=== PATIENT | male | born 1965 | race Caucasian/White ===

== ENCOUNTER 2018-10-13 05:47 | Day surgery (SDC) | payer SELFPAY ==
[2018-10-12 11:34] LABS: HEMATOCRIT 49.5 % (37.9-51.0); HEMOGLOBIN 17.1 g/dL (13.5-17.0); MEAN CORPUSCULAR HEMOGLOBIN 28.1 pg (27.0-33.4); MEAN CORPUSCULAR HGB CONC 34.5 g/dL (32.0-36.0); MEAN CORPUSCULAR VOLUME 81 fl (80-97); PLATELET COUNT 241 10^3/uL (150-450); RED BLOOD COUNT 6.08 10^6/uL (4.35-5.55); RED CELL DISTRIBUTION WIDTH 13.8 % (11.5-14.0); WHITE BLOOD COUNT 9.6 10^3/uL (4.0-10.5)
[2018-10-12 11:57] LABS: ALANINE AMINOTRANSFERASE 30 U/L (21-72); ALBUMIN 4.3 g/dL (3.5-5.0); ALKALINE PHOSPHATASE 65 U/L (38-126); ANION GAP 10 (5-19); ASPARTATE AMINO TRANSFERASE 19 U/L (17-59); BILIRUBIN,DIRECT 0.3 mg/dL (0.0-0.4); BILIRUBIN,TOTAL 0.4 mg/dL (0.2-1.3); BLOOD UREA NITROGEN 17 mg/dL (7-20); CALCIUM 9.4 mg/dL (8.4-10.2); CARBON DIOXIDE 26 mmol/L (22-30); CHLORIDE 99 mmol/L (98-107); GLUCOSE 238 mg/dL (75-110); POTASSIUM 4.6 mmol/L (3.6-5.0); SODIUM 135.3 mmol/L (137-145); TOTAL PROTEIN 6.6 g/dL (6.3-8.2)
--- NOTE | 2018-10-12 13:27 | EKG REPORT ---
SEVERITY:- NORMAL ECG - SINUS RHYTHM : Confirmed by: Colby Cutler MD 12-Oct-2018 13:27:00
--- NOTE | 2018-10-12 14:12 | RADIOLOGY REPORT (SQ) ---
EXAM DESCRIPTION: CHEST PA/LATERAL COMPLETED DATE/TIME: 10/12/2018 11:15 am REASON FOR STUDY: PRE-OP COMPARISON: None. EXAM PARAMETERS: NUMBER OF VIEWS: two views TECHNIQUE: Digital Frontal and Lateral radiographic views of the chest acquired. RADIATION DOSE: NA LIMITATIONS: none FINDINGS: LUNGS AND PLEURA: No opacities, masses or pneumothorax. No pleural effusion. MEDIASTINUM AND HILAR STRUCTURES: No masses or contour abnormalities. HEART AND VASCULAR STRUCTURES: Heart normal size. No evidence for failure. BONES: No acute findings. HARDWARE: None in the chest. OTHER: No other significant finding. IMPRESSION: NO SIGNIFICANT RADIOGRAPHIC FINDING IN THE CHEST. TECHNICAL DOCUMENTATION: JOB ID: [id number] [employer]- All Rights Reserved Reading location - IP/workstation name: [email or web address]
[~2018-10-13 05:47] MED LIST: ACETAMINOPHEN 325 MG TABLET PO PRN; CEFAZOLIN 2 GM/D5W RTU 2 GM/50 ML RTUPB IV ONE; CEFAZOLIN 2 GM/D5W RTU 2 GM/50 ML RTUPB IV PRN; LACTATED RINGERS 1000 ML IV PRN; LIDOCAINE 0.5% INJ-PF (5 MG/ML) 50 ML SDV SUBCUT PRN
[2018-10-13] MEDS ORDERED: HYDROMORPHONE HCL INJ/PF 2 MG/ML AMPULE ONE (06:39)
[2018-10-13] MEDS ORDERED: FENTANYL CITRATE INJ/PF 100 MCG/2 ML AMPUL ONE (06:39)
[2018-10-13] MEDS ORDERED: MIDAZOLAM 2 MG/2 ML INJ ONE (06:40)
[2018-10-13] MEDS ORDERED: PROPOFOL INJ 200 MG/20 ML VIAL IV ONE (06:40)
[2018-10-13] MEDS ORDERED: ACETAMINOPHEN 1,000 MG/100 ML RTUPB IV ONE (06:40)
[2018-10-13] MEDS ORDERED: BUPIVACAINE HCL 0.25 % INJ/PF (2.5 MG/1 ML) 30 ML VIAL ONE (06:58)
[2018-10-13 07:49] LABS: POTASSIUM 4.4 mmol/L (3.6-5.0)
[2018-10-13] MEDS ORDERED: FENTANYL CITRATE INJ/PF 100 MCG/2 ML AMPUL IV PRN ×3 (08:28)
[2018-10-13] MEDS ORDERED: DIPHENHYDRAMINE HCL 50 MG/ML VIAL IV PRN (08:28)
[2018-10-13] MEDS ORDERED: MEPERIDINE HCL/PF INJ 25 MG/1 ML DISP.SYRIN IV PRN (08:28)
[2018-10-13] MEDS ORDERED: PROMETHAZINE HCL INJ 25 MG/1 ML VIAL IV PRN ×2 (08:28)
[2018-10-13] MEDS: FENTANYL CITRATE INJ/PF 100 MCG/2 ML AMPUL ONE ×2 (11:15→11:20)
[2018-10-13] MEDS ORDERED: HYDROCODONE/ACETAMINOPHEN 10-325 MG TABLET ONE (11:59)
[2018-10-13 12:57] VITALS: BP 124/79
[2018-10-13] MEDS ORDERED: GLYCOPYRROLATE 1 MG/5 ML SYRINGE ONE (14:37)
[2018-10-13] MEDS ORDERED: NEOSTIGMINE METHYLSULFATE 10 MG/10 ML VIAL ONE (14:37)
[2018-10-13] MEDS ORDERED: SUCCINYLCHOLINE CHLORIDE INJ 200 MG/10 ML VIAL ONE (14:37)
[2018-10-13] MEDS ORDERED: ONDANSETRON HCL INJ/PF 4 MG/2 ML SDV ONE (14:37)
[2018-10-13] MEDS ORDERED: DEXAMETHASONE SOD PHOSPHATE INJ 4 MG/1 ML VIAL ONE (14:37)
[2018-10-13] MEDS ORDERED: KETOROLAC TROMETHAMINE 60 MG/2 ML SDV ONE (14:37)
[2018-10-13] MEDS ORDERED: ROCURONIUM BROMIDE INJ 50 MG/5 ML VIAL IV ONE (14:37)
[2018-10-13] MEDS ORDERED: LIDOCAINE 2% INJ-PF (20 MG/ML) 2 ML AMPUL ONE (14:37)
--- NOTE | 2018-10-15 12:49 | Discharge Summary ---
Discharge Summary (SDC) - Discharge Final Diagnosis: Bilateral inguinal hernias. Date of Surgery: 10/13/18 Discharge Date: 10/13/18 Condition: Stable Forms: ASU Anesthesia D/C Instruction, Discharge POC-Surgical Service Treatment or Instructions: Call Dr. Davis's office tomorrow, and make a followup appointment for 7-10 days from now. Referrals: YAJAIRA HAGAN MD [ACTIVE STAFF] - Respiratory Treatments at Home: Deep Breathing/Coughing, Incentive Spirometer Discharge Activity: No Lifting/Push/Pulling Home Care Assistance: None Needed Report the Following to Your Physician Immediately: Shortness of Breath, Nausea, Vomiting, Increase in Pain, Fever over 101 Degrees, Unusual Bleeding, Redness, Swelling, Warmth
--- NOTE | 2018-10-15 13:06 | Operative Report ---
Nonrecallable Operative Report DATE OF SURGERY: 10/13/18 PREOPERATIVE DIAGNOSIS: Bilateral inguinal hernias. POSTOPERATIVE DIAGNOSIS: Large bilateral pantaloon inguinal hernias. OPERATION: Robot-assisted laparoscopic bilateral inguinal hernia repair with mesh. SURGEON: YAJAIRA HAGAN ANESTHESIA: GA TISSUE REMOVED OR ALTERED: None COMPLICATIONS: None apparent ESTIMATED BLOOD LOSS: Minimal PROCEDURE: Drains/implants: Right and left large 3 DMax inguinal hernia mesh. Procedure in detail: After informed consent was obtained, the patient was brought to the operating room and laid in the supine position the area of the abdomen was prepped and draped in a normal sterile fashion. A supraumbilical incision was created with a 15 blade scalpel. This was deepened to the use of sharp and blunt dissection. The cicatrix was identified, grasped with a Karlee clamp, and retracted upwards. The linea alba fascia was incised sharply, the abdomen was entered sharply. The balloon trocar was inserted, pneumoperitoneum was achieved. Next, 2 8 mm robotic trochars were placed to the anterior abdominal wall under direct laparoscopic visualization. This was done in the right and left lateral abdomen. Robot was then brought over the patient and docked appropriately. Attention was turned to the right groin. An incision was created in the peritoneum 2-3 cm superior to the indirect inguinal hernia defect. A preperitoneal dissection was then undertaken. Upon dissection, it was noted that there was both an indirect and a direct right inguinal hernia defect, creating a pantaloon hernia. The hernia sacs were cleared from both the indirect and direct defects. Great care was taken not to injure the cord structures during this maneuver. Once this was completed, a large right-sided 3 DMax inguinal hernia mesh was placed into the preperitoneal space and it was sutured medially and superiorly using 2-0 Vicryl suture. Once this was completed the peritoneum was reapproximated using 2-0 V lock suture in simple running fashion. Attention was then turned to the left side. A preperitoneal dissection was begun in similar fashion on the left. The peritoneum was scored 2-3 cm superior to the large left indirect inguinal hernia defect. A preperitoneal dissection was then undertaken using sharp dissection, blunt dissection, and electrocautery. On the left side there was also noted to be a large direct component to the inguinal hernia defect. Both hernia sacs were dissected free of the defects. Great care was taken not to injure the cord structures during this maneuver. Once the defects were cleared, a large left- sided 3 DMax inguinal hernia mesh was placed into the preperitoneal space. It was sutured in place using 2-0 Vicryl suture medially and superiorly. Once this was completed, the peritoneum was closed using 2-0 V lock suture in simple running fashion. The 8 mm trochars were removed. The 12 mm trocar was removed, and pneumoperitoneum was relieved. The supraumbilical fascia was closed using 0 Vicryl suture in [id number] fashion. The overlying skin was closed using 4-0 Vicryl Rapide suture in subcuticular fashion. A dressing was placed, and the procedure was concluded. All sponge, instrument, and needle counts were correct x2. Condition: Stable.
== END 2018-10-13 13:15 | disposition home or self-care (01) ==
LOC: OROUT 05:47
PROVIDERS: ATTEND Surgery
DX: K40.20 Bilateral inguinal hernia, without obstruction or gangrene, not specified as recurrent (principal); E11.9 Type 2 diabetes mellitus without complications; I10 Essential (primary) hypertension; Z79.82 Long term (current) use of aspirin; Z79.84 Long term (current) use of oral hypoglycemic drugs; Z79.899 Other long term (current) drug therapy
CPT/HCPCS: 49650; S2900; 36415; 71046; 80053; 82947; 840; 84132; 85027; 86850; 86900; 86901; 93005; 93010; C1781; J0131; J0330; J0690; J1100; J1170; J1885; J2250; J2405; J2704; J3010; J3490

== ENCOUNTER 2019-12-13 05:12 | Emergency (ER) | payer SELFPAY ==
--- NOTE | 2019-12-13 06:13 | EKG REPORT ---
SEVERITY:- NORMAL ECG - SINUS RHYTHM : Confirmed by: Colby Cutler MD 13-Dec-2019 06:12:38
[2019-12-13 06:16] LABS: ABSOLUTE BASOPHILS # (AUTO) 0.1 10^3/uL (0.0-0.2); ABSOLUTE EOSINOPHILS # (AUTO) 0.5 10^3/uL (0.0-0.6); ABSOLUTE LYMPHOCYTES (AUTO) 2.1 10^3/uL (0.5-4.7); ABSOLUTE MONOCYTES (AUTO) 0.7 10^3/uL (0.1-1.4); ABSOLUTE NEUT (AUTO) 5.1 10^3/uL (1.7-8.2); BASOPHILS % (AUTO) 1.1 % (0-2); EOSINOPHILS % (AUTO) 6.1 % (0-6); HEMATOCRIT 48.7 % (37.9-51.0); HEMOGLOBIN 16.7 g/dL (13.5-17.0); LYMPHOCYTES % (AUTO) 24.2 % (13-45); MEAN CORPUSCULAR HEMOGLOBIN 28.1 pg (27.0-33.4); MEAN CORPUSCULAR HGB CONC 34.3 g/dL (32.0-36.0); MEAN CORPUSCULAR VOLUME 82 fl (80-97); MONOCYTES % (AUTO) 8.8 % (3-13); PLATELET COUNT 218 10^3/uL (150-450); RED BLOOD COUNT 5.95 10^6/uL (4.35-5.55); RED CELL DISTRIBUTION WIDTH 14.1 % (11.5-14.0); SEGMENTED NEUTROPHILS % (AUTO) 59.8 % (42-78); TOTAL CELLS COUNTED % (AUTO) 100 %; WHITE BLOOD COUNT 8.5 10^3/uL (4.0-10.5)
[2019-12-13 06:33] LABS: ALKALINE PHOSPHATASE 56 U/L (38-126); ANION GAP 9 (5-19); ASPARTATE AMINO TRANSFERASE 33 U/L (17-59); BILIRUBIN,TOTAL 0.5 mg/dL (0.2-1.3); BLOOD UREA NITROGEN 21 mg/dL (7-20); CALCIUM 9.1 mg/dL (8.4-10.2); CARBON DIOXIDE 25 mmol/L (22-30); CHLORIDE 99 mmol/L (98-107); CREATINE KINASE 107 U/L (55-170); GLUCOSE 195 mg/dL (75-110); POTASSIUM 4.7 mmol/L (3.6-5.0); TOTAL PROTEIN 6.6 g/dL (6.3-8.2)
[2019-12-13 06:52] LABS: CREATINE KINASE MB 2.56 ng/mL (<4.55)
[2019-12-13 06:54] LABS: TROPONIN I < 0.012 ng/mL
--- NOTE | 2019-12-13 06:57 | ER Document Report ---
ED General - General Chief Complaint: Chest Pain Stated Complaint: CHEST PAINS Time Seen by Provider: 12/13/19 06:26 Primary Care Provider: JAYA HENNING PA-C [Primary Care Provider] - Follow up as needed Mode of Arrival: Ambulatory Information source: Patient TRAVEL OUTSIDE OF THE [place] IN LAST 30 DAYS: No - HPI Onset: Other - over the last several days Onset/Duration: Gradual Quality of pain: Burning, Sharp Severity: Moderate Pain Level: 2 Associated symptoms: None Exacerbated by: Other - made worse with stress and sometimes with eating food such as steak Relieved by: Denies Similar symptoms previously: No Recently seen / treated by doctor: No Notes: 54 year old male with a history of HTN and DM here for off and on lower chest pain and epigastric pain for the last several days. The patient says eating foot such as steak seems to make the pains worse sometimes. The patient has been under a fair amount of stress dealing with his 11 year old step son and he says the stress seems to make the pain worse as well. The patient says he has had the pains before but they have become worse over the last 2 days and yesterday he had some SOB with the chest pain which was new for him. The patient denies fevers, chills, sweats, nausea, vomiting, radiation of chest pain, cough, congestion. - Related Data Allergies/Adverse Reactions: No Known Allergies Allergy (Verified 10/12/18 10:15) Home Medications: lisinopril/hctz 20/25 qday. asa 81 mg qday. metformin 1000 mg bid. gliberide 5 mg bid Past Medical History - General Information source: Patient - Social History Smoking Status: Never Smoker Frequency of alcohol use: Rare Drug Abuse: None Lives with: Family Family History: Other - father had pancreatic cancer Patient has suicidal ideation: No Patient has homicidal ideation: No - Past Medical History Cardiac Medical History: Reports: Hx Hypertension Denies: Hx Coronary Artery Disease, Hx Heart Attack Pulmonary Medical History: Denies: Hx Asthma, Hx Bronchitis, Hx COPD, Hx Pneumonia Neurological Medical History: Denies: Hx Cerebrovascular Accident, Hx Seizures Endocrine Medical History: Reports: Hx Diabetes Mellitus Type 2 Musculoskeletal Medical History: Denies Hx Arthritis - Immunizations Hx Diphtheria, Pertussis, Tetanus Vaccination: Yes - NOT UP TO DATE Review of Systems - Review of Systems Constitutional: No symptoms reported EENT: No symptoms reported Cardiovascular: Chest pain Respiratory: No symptoms reported Gastrointestinal: Abdominal pain - in epigastric area Genitourinary: No symptoms reported Male Genitourinary: No symptoms reported Musculoskeletal: No symptoms reported Skin: No symptoms reported Hematologic/Lymphatic: No symptoms reported Neurological/Psychological: No symptoms reported -: Yes All other systems reviewed and negative Physical Exam - Vital signs Vitals: Temp Pulse Resp BP Pulse Ox 98.2 F 81 16 124/73 99 12/13/19 05:33 12/13/19 05:33 12/13/19 05:33 12/13/19 05:33 12/13/19 05:33 - Notes Notes: GENERAL: Well-appearing, well-nourished and in no acute distress. HEAD: Atraumatic, normocephalic. EYES: Pupils equal round and reactive to light, extraocular movements intact, sclera anicteric, conjunctiva are normal. ENT: Nares patent, oropharynx clear without exudates. Moist mucous membranes. NECK: Normal range of motion, supple without lymphadenopathy or JVD. LUNGS: Breath sounds clear to auscultation bilaterally and equal. No wheezes rales or rhonchi. HEART: Regular rate and rhythm without murmurs, rubs or gallops. ABDOMEN: Soft, nontender, normoactive bowel sounds. No guarding, no rebound. No masses appreciated. EXTREMITIES: Normal range of motion, no pitting or edema. No clubbing or cyanosis. NEUROLOGICAL: Cranial nerves II through XII grossly intact. Normal speech, normal gait. PSYCH: Normal mood, normal affect. SKIN: Warm, Dry, normal turgor, no rashes or lesions noted. Course - Re-evaluation Re-evalutation: 12/13/19 09:39 The patient is here for lower chest pain/epigastric abdominal pain. The patient says he has been under a lot of stress with his step son and this seems to bring on the pains. The patient says eating certain foods like steak also bring on the pains. The patient has had his gallbladder removed already. Patient's pain went completely away with a GI Cocktail. Patient's labs including a CBC, LFTs, Lipase and Trop are within normal limits. Patient's father had a history of pancreatic cancer. Patient was told to follow up with his PCP for further work. Patient was told he should have a stress test to rule out cardiac causes, he should consider having an endoscopy to rule out an ulcer, and he may need further lab testing or studies to rule out pancreatic cancer. - Vital Signs Vital signs: Temp Pulse Resp BP Pulse Ox 98.1 F 81 19 128/74 H 96 12/13/19 08:01 12/13/19 05:33 12/13/19 08:01 12/13/19 08:01 12/13/19 08:01 - Laboratory Result Diagrams: 12/13/19 06:05 12/13/19 06:05 Laboratory results interpreted by me: 12/13/19 12/13/19 06:05 06:05 RBC 5.95 H RDW 14.1 H Eos % (Auto) 6.1 H Sodium 133.2 L BUN 21 H Glucose 195 H - Diagnostic Test Radiology reviewed: Image reviewed, Reports reviewed - EKG Interpretation by Me EKG shows normal: Sinus rhythm, [place], Intervals, QRS Complexes, ST-T Waves Rate: Normal Rhythm: NSR When compared to previous EKG there are: No significant change Discharge - Discharge Clinical Impression: Epigastric abdominal pain Chest pain Qualifiers: Chest pain type: unspecified Qualified Code(s): R07.9 - Chest pain, unspecified Condition: Stable Disposition: HOME, SELF-CARE Instructions: Chest Pain of Unclear Cause ([facility]), Evaluation of Upper Abdominal Pain ([facility]) Additional Instructions: Try using over the counter anti-acid medications such as Raimundo, Zantac, Protonix. Follow up with your primary care doctor for further work up if symptoms persist. You may need to have a cardiac stress test, an endoscopy, or more blood tests depending on if your symptoms persist and what they seem to be related to activity [place]. Referrals: JAYA HENNING PA-C [Primary Care Provider] - Follow up as needed
[2019-12-13] MEDS ORDERED: MAG HYDROX/AL HYDROX/SIMETH SUSP 30 ML UDCUP PO ONE (07:08)
[2019-12-13] MEDS ORDERED: LIDOCAINE 2% VISCOUS SOLN 15 ML UDCUP PO ONE (07:08)
[2019-12-13] MEDS ORDERED: METOCLOPRAMIDE HCL ORAL SOLN 10 MG/10 ML UDCUP PO ONE (07:08)
--- NOTE | 2019-12-13 07:09 | RADIOLOGY REPORT (SQ) ---
EXAM: XR Chest, 1 View EXAM DATE/TIME: 12/13/2019 6:06 AM CLINICAL HISTORY: The patient is 54 years old and is Male; chest pain TECHNIQUE: Frontal view of the chest. COMPARISON: Chest radiograph from 10/12/2018 FINDINGS: LUNGS: The lungs are mildly hypoinflated but clear. No consolidation. PLEURAL SPACE: Unremarkable. No pneumothorax. HEART: No significant enlargement of the cardiac silhouette. MEDIASTINUM: Unremarkable. BONES/JOINTS: No acute osseous findings. IMPRESSION: No acute findings visualized in the chest.
[2019-12-13 10:19] VITALS: BP 121/84
== END 2019-12-13 10:21 | disposition home or self-care (01) ==
LOC: ER 05:12
DX: R07.9 Chest pain, unspecified (principal); R10.13 Epigastric pain; R06.02 Shortness of breath; I10 Essential (primary) hypertension; E11.9 Type 2 diabetes mellitus without complications; Z63.8 Other specified problems related to primary support group; Z79.84 Long term (current) use of oral hypoglycemic drugs; Z79.899 Other long term (current) drug therapy; Z79.82 Long term (current) use of aspirin; Z90.49 Acquired absence of other specified parts of digestive tract; Z80.0 Family history of malignant neoplasm of digestive organs
CPT/HCPCS: 93005; 99285; 36415; 82553; 82550; 83690; 85025; 80053; 84484; 83880; 71045; 93010; J3490

== ENCOUNTER 2020-05-31 11:48 | Emergency (ER) | payer OTHER ==
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
[2020-05-31] MEDS ORDERED: MORPHINE SULFATE 10 MG/ML INJ IV ONE (13:53)
[2020-05-31 14:06] LABS: ABSOLUTE BASOPHILS # (AUTO) 0.1 10^3/uL (0.0-0.2); ABSOLUTE EOSINOPHILS # (AUTO) 0.7 10^3/uL (0.0-0.6); ABSOLUTE LYMPHOCYTES (AUTO) 2.1 10^3/uL (0.5-4.7); ABSOLUTE MONOCYTES (AUTO) 0.8 10^3/uL (0.1-1.4); ABSOLUTE NEUT (AUTO) 7.9 10^3/uL (1.7-8.2); BASOPHILS % (AUTO) 0.5 % (0-2); HEMATOCRIT 41.8 % (37.9-51.0); HEMOGLOBIN 13.9 g/dL (13.5-17.0); LYMPHOCYTES % (AUTO) 18.3 % (13-45); MEAN CORPUSCULAR HEMOGLOBIN 27.5 pg (27.0-33.4); MEAN CORPUSCULAR HGB CONC 33.3 g/dL (32.0-36.0); MEAN CORPUSCULAR VOLUME 82 fl (80-97); MONOCYTES % (AUTO) 7.1 % (3-13); PLATELET COUNT 275 10^3/uL (150-450); RED BLOOD COUNT 5.07 10^6/uL (4.35-5.55); RED CELL DISTRIBUTION WIDTH 14.7 % (11.5-14.0); SEGMENTED NEUTROPHILS % (AUTO) 68.1 % (42-78); TOTAL CELLS COUNTED % (AUTO) 100 %; WHITE BLOOD COUNT 11.6 10^3/uL (4.0-10.5)
[2020-05-31 14:22] LABS: ALBUMIN 4.3 g/dL (3.5-5.0); ALKALINE PHOSPHATASE 66 U/L (38-126); ANION GAP 10 (5-19); ASPARTATE AMINO TRANSFERASE 21 U/L (17-59); BILIRUBIN,TOTAL 0.6 mg/dL (0.2-1.3); BLOOD UREA NITROGEN 30 mg/dL (7-20); CALCIUM 9.5 mg/dL (8.4-10.2); CARBON DIOXIDE 25 mmol/L (22-30); CHLORIDE 99 mmol/L (98-107); GLUCOSE 118 mg/dL (75-110); POTASSIUM 4.6 mmol/L (3.6-5.0); TOTAL PROTEIN 7.2 g/dL (6.3-8.2)
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
[2020-05-31 17:18] VITALS: BP 110/66
== END 2020-05-31 17:18 | disposition home or self-care (01) ==
LOC: ER 11:48
DX: S06.0X0A Concussion without loss of consciousness, initial encounter (principal); S80.12XA Contusion of left lower leg, initial encounter; S30.1XXA Contusion of abdominal wall, initial encounter; I95.9 Hypotension, unspecified; V58.5XXA Driver of pick-up truck or van injured in noncollision transport accident in traffic accident, initial encounter; Y99.0 Civilian activity done for income or pay; I10 Essential (primary) hypertension; E11.9 Type 2 diabetes mellitus without complications
CPT/HCPCS: 99285; 96374; 36415; 85025; 80053; 70450; 72125; 74177; 73700; J2270

== ENCOUNTER 2020-07-18 13:25 | Emergency (ER) | payer OTHER ==
[2020-07-18] MEDS ORDERED: HYDROCODONE/ACETAMINOPHEN 5-325 MG TABLET PO ONE (15:40)
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
--- NOTE | 2020-07-18 16:16 | RADIOLOGY REPORT (SQ) ---
EXAM DESCRIPTION: U/S EXTREMITY NONVASCULAR LTD IMAGES COMPLETED DATE/TIME: 07/18/2020 4:02 pm REASON FOR STUDY: left upper thigh large hematoma, +pain, +swelling COMPARISON: None. TECHNIQUE: Dynamic and static grayscale images acquired of the localized site of clinical concern an d recorded on PACS. Additional selected color Doppler and spectral images recorded. SITE OF CONCERN: Left lower extremity LIMITATIONS: None. FINDINGS: SKIN AND SUBCUTANEOUS TISSUES: There is a circumscribed 15.0 x 7.7 x 6.1 cm heterogeneous, predominantly hypoechoic collection within the subcutaneous soft tissues. Color Doppler interrogati on demonstrates no internal vascularity. Given the appearance of lacy internal septations, this like ly represents a resolving hematoma. The overlying skin appears somewhat edematous. DEEP SOFT TISSUES/MUSCLES: No masses. No fluid collections. No edema. VASCULAR: No increased or decreased vascularity. No occlusions. OTHER: No other significant finding. IMPRESSION: 15.0 x 7.7 x 6.1 cm subcutaneous collection likely represents a resolving hematoma. TECHNICAL DOCUMENTATION: JOB ID: [id number] 2010 [employer]- All Rights Reserved Reading location - IP/workstation name: [email or web address]
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
[2020-07-18 17:49] VITALS: BP 130/79
== END 2020-07-18 18:22 | disposition home or self-care (01) ==
LOC: ER 13:25
DX: S70.12XA Contusion of left thigh, initial encounter (principal); M79.89 Other specified soft tissue disorders; M79.605 Pain in left leg; V69.9XXA Occupant (driver) (passenger) of heavy transport vehicle injured in unspecified traffic accident, initial encounter; Y99.0 Civilian activity done for income or pay
CPT/HCPCS: 76882; 99284

== ENCOUNTER → 2020-07-27 | Outpatient (CLI) | payer OTHER ==
[2020-07-27 11:48] LABS: APPEARANCE,URINE CLEAR; BILIRUBIN,URINE NEGATIVE (NEGATIVE); COLOR,URINE YELLOW; GLUCOSE, URINE 50 mg/dL (NEGATIVE); KETONES,URINE NEGATIVE (NEGATIVE); LEUKOCYTE ESTERASE,URINE NEGATIVE (NEGATIVE); NITRITE,URINE NEGATIVE (NEGATIVE); PROTEIN,URINE NEGATIVE (NEGATIVE); URINE SPECIFIC GRAVITY 1.012; UROBILINOGEN,URINE NEGATIVE mg/dL (<2.0)
[2020-07-27 11:51] LABS: ABSOLUTE BASOPHILS # (AUTO) 0.1 10^3/uL (0.0-0.2); ABSOLUTE EOSINOPHILS # (AUTO) 0.5 10^3/uL (0.0-0.6); ABSOLUTE LYMPHOCYTES (AUTO) 1.9 10^3/uL (0.5-4.7); ABSOLUTE MONOCYTES (AUTO) 0.8 10^3/uL (0.1-1.4); ABSOLUTE NEUT (AUTO) 5.7 10^3/uL (1.7-8.2); EOSINOPHILS % (AUTO) 5.4 % (0-6); HEMATOCRIT 44.8 % (37.9-51.0); HEMOGLOBIN 15.4 g/dL (13.5-17.0); LYMPHOCYTES % (AUTO) 21.3 % (13-45); MEAN CORPUSCULAR HEMOGLOBIN 27.9 pg (27.0-33.4); MEAN CORPUSCULAR HGB CONC 34.3 g/dL (32.0-36.0); MEAN CORPUSCULAR VOLUME 81 fl (80-97); MONOCYTES % (AUTO) 8.7 % (3-13); PLATELET COUNT 261 10^3/uL (150-450); RED BLOOD COUNT 5.53 10^6/uL (4.35-5.55); RED CELL DISTRIBUTION WIDTH 15.1 % (11.5-14.0); SEGMENTED NEUTROPHILS % (AUTO) 63.6 % (42-78); TOTAL CELLS COUNTED % (AUTO) 100 %
[2020-07-27 12:14] LABS: ANION GAP 13 (5-19); BLOOD UREA NITROGEN 26 mg/dL (7-20); CALCIUM 9.6 mg/dL (8.4-10.2); CARBON DIOXIDE 26 mmol/L (22-30); CHLORIDE 94 mmol/L (98-107); GLUCOSE 192 mg/dL (75-110); POTASSIUM 4.8 mmol/L (3.6-5.0)
--- NOTE | 2020-07-27 12:25 | EKG REPORT ---
SEVERITY:- OTHERWISE NORMAL ECG - SINUS TACHYCARDIA : Confirmed by: Colby Cutler MD 27-Jul-2020 12:24:23
--- NOTE | 2020-07-27 14:23 | RADIOLOGY REPORT (SQ) ---
EXAM DESCRIPTION: CHEST PA/LATERAL IMAGES COMPLETED DATE/TIME: 07/27/2020 2:05 pm REASON FOR STUDY: PRE-OP COMPARISON: 12/13/2019 EXAM PARAMETERS: NUMBER OF VIEWS: two views TECHNIQUE: Digital Frontal and Lateral radiographic views of the chest acquired. RADIATION DOSE: NA LIMITATIONS: none FINDINGS: LUNGS AND PLEURA: No opacities, masses or pneumothorax. No pleural effusion. MEDIASTINUM AND HILAR STRUCTURES: No masses or contour abnormalities. HEART AND VASCULAR STRUCTURES: Heart normal size. No evidence for failure. BONES: No acute findings. HARDWARE: None in the chest. OTHER: No other significant finding. IMPRESSION: NO SIGNIFICANT RADIOGRAPHIC FINDING IN THE CHEST. TECHNICAL DOCUMENTATION: JOB ID: [id number] 2010 [employer]- All Rights Reserved Reading location - IP/workstation name: [email or web address]
== END ==
LOC: OD 10:27
PROVIDERS: ATTEND Orthopaedic Surgery
DX: Z01.810 Encounter for preprocedural cardiovascular examination (principal); Z01.811 Encounter for preprocedural respiratory examination; Z01.812 Encounter for preprocedural laboratory examination
CPT/HCPCS: 36415; 71046; 80048; 81001; 83036; 85025; 93005; 93010

== ENCOUNTER 2020-07-31 05:15 | Observation (INO) | payer OTHER ==
[~2020-07-31 05:15] MED LIST changes: -ACETAMINOPHEN 325 MG TABLET PO PRN; -CEFAZOLIN 2 GM/D5W RTU 2 GM/50 ML RTUPB IV PRN; +CEFAZOLIN SODIUM 2 GM in DEXTROSE 5%-WATER 100 ML IV PRN; -LACTATED RINGERS 1000 ML IV PRN; -LIDOCAINE 0.5% INJ-PF (5 MG/ML) 50 ML SDV SUBCUT PRN
[2020-07-31 07:02] LABS: POTASSIUM 4.5 mmol/L (3.6-5.0)
[2020-07-31] MEDS ORDERED: FENTANYL CITRATE INJ/PF 100 MCG/2 ML AMPUL ONE (07:05)
[2020-07-31] MEDS ORDERED: KETAMINE HCL INJ 500 MG/10 ML VIAL ONE (07:05)
[2020-07-31] MEDS ORDERED: MIDAZOLAM 2 MG/2 ML INJ ONE (07:05)
[2020-07-31] MEDS ORDERED: PROPOFOL INJ 200 MG/20 ML VIAL IV ONE ×2 (07:05→08:56)
[2020-07-31] MEDS ORDERED: BUPIVACAINE HCL 0.5 % INJ/PF 30 ML SDV ONE (07:06)
[2020-07-31] MEDS ORDERED: BACITRACIN INJ 50,000 UNIT VIAL ONE (07:06)
[2020-07-31] MEDS ORDERED: LIDOCAINE 1% INJ-PF (10 MG/ML) 30 ML SDV ONE (07:06)
[2020-07-31] MEDS ORDERED: FENTANYL CITRATE INJ/PF 100 MCG/2 ML AMPUL IV PRN ×3 (08:16)
[2020-07-31] MEDS ORDERED: PROMETHAZINE HCL INJ 25 MG/1 ML VIAL IV PRN ×2 (08:16)
[2020-07-31] MEDS ORDERED: MEPERIDINE HCL/PF INJ 25 MG/1 ML DISP.SYRIN IV PRN (08:16)
[2020-07-31] MEDS ORDERED: MORPHINE SULFATE 10 MG/ML INJ IV PRN ×3 (08:16→09:17)
[2020-07-31] MEDS ORDERED: DIPHENHYDRAMINE HCL 50 MG/ML VIAL IV PRN (08:16)
[2020-07-31] MEDS ORDERED: DOCUSATE SODIUM 100 MG CAPSULE PO PRN (09:17)
[2020-07-31] MEDS ORDERED: ONDANSETRON 4 MG TAB.RAPDIS PO PRN (09:17)
[2020-07-31] MEDS ORDERED: NORMAL SALINE 1000 ML 1,000 ML IV ONE (09:17)
[2020-07-31] MEDS ORDERED: TRAMADOL HCL 50 MG TABLET PO PRN (09:17)
[2020-07-31] MEDS ORDERED: DIPHENHYDRAMINE HCL 25 MG CAPSULE PO PRN (09:17)
[2020-07-31] MEDS ORDERED: ZOLPIDEM TARTRATE 5 MG TABLET PO PRN (09:17)
--- NOTE | 2020-07-31 09:17 | Operative Report ---
Operative Report DATE OF SURGERY: 07/31/20 PREOPERATIVE DIAGNOSIS: Left thigh Choi-Carlie POSTOPERATIVE DIAGNOSIS: Left thigh Choi-Carlie OPERATION: Evacuation of Choi Carlie, tissue imbrication, wound VAC application. SURGEON: KALIA FAIRBANKS JR ANESTHESIA: LMAC TISSUE REMOVED OR ALTERED: Cultures taken COMPLICATIONS: None ESTIMATED BLOOD LOSS: 20 cc PROCEDURE: Patient was brought to the operating suite and laid supine on the operating table. He was placed under LMAC anesthesia. Preoperatively was given 2 g Ancef. The left lower extremity was prepped and draped in standard sterile fashion. After adequate anesthesia an appropriate timeout was performed. The wound was injected with local anesthetic prior to incision. An incision was made centered over the lesion. Overall the lesion measured approximately 20 x 15 cm, the incision was approximately 5 cm. Upon dissecting through the subcuta neous layer we immediately encountered hematoma which was evacuated. Fluid cultures were taken. Approximately 300 cc of sanguinous fluid was evacuated. A Ferguson was used to gently debride any remaining clots. After thorough debridement and evacuation we then copiously irrigated the wound with dilute Betadine solution. The lesion appeared to be a centered over the saphenous vein which was likely the etiology for the hematoma. It remained in continuity and was protected throughout the case. The lesion was between the adipose layer and the underlying fascia of the thigh musculature. We used a 2 oh barbed Monocryl to begin imbricating the 2 layers back together. This was done in a systematic fashion with a running suture. I was able to obtain a successful embrocation of the periphery of the lesion. The remaining 2 cm peripheral to the incision were left without imbricating in order to allow application of a wound VAC. A white sponge was placed into the wound measuring approximately 2 x 4 cm. A single loosely tied 3-0 nylon was placed over the center of the incision to gently approximate the skin over the white sponge. A black VAC sponge was then placed over the incision with a protective layer of Adaptic. Following this the wound VAC was completed with the seal tape and was placed under 125 mmHg of continuous pressure. The seal was excellent. The patient was then awakened from anesthesia and transferred the PACU in stable condition.
[2020-07-31] MEDS ORDERED: METHOCARBAMOL 500 MG TABLET PO PRN (09:20)
[2020-07-31] MEDS ORDERED: (PENDING PHARMACY ID) (Metformin Hcl [Metformin Hcl] 1,000 MG) PO SCH (10:00)
[2020-07-31] MEDS ORDERED: (PENDING PHARMACY ID) (Lisinopril/Hydrochlorothiazide [Lisinopril-Hctz 20-25 Mg Tab] 1 EAC PO SCH (10:00)
[2020-07-31] MEDS ORDERED: DEXAMETHASONE SOD PHOS INJ 10 MG/1 ML VIAL IV ONE (10:00)
[2020-07-31] MEDS ORDERED: PANTOPRAZOLE SODIUM 20 MG TABLET.DR PO ONE (10:30)
[2020-07-31] MEDS: ASPIRIN 81 MG TABLET, ENT COATED PO SCH ×2 (10:42→17:06)
[2020-07-31] MEDS: CEPHALEXIN 500 MG CAPSULE PO SCH ×2 (10:42→22:19)
[2020-07-31] MEDS: HYDROCHLOROTHIAZIDE 25 MG TABLET PO SCH (10:48)
[2020-07-31] MEDS: LISINOPRIL 10 MG TABLET PO SCH (10:54)
[2020-07-31] MEDS: ACETAMINOPHEN 325 MG TABLET PO SCH ×3 (11:32→23:35)
[2020-07-31] MEDS: METFORMIN HCL 500 MG TABLET PO SCH ×3 (11:32→22:19)
[2020-07-31] MEDS ORDERED: CEFAZOLIN 2 GM/D5W RTU 2 GM/50 ML RTUPB IV SCH (14:00)
[2020-07-31] MEDS: CEFAZOLIN SODIUM 2 GM in DEXTROSE 5%-WATER 100 ML IV SCH ×2 (14:21→22:20)
[2020-07-31] MEDS ORDERED: CYCLOBENZAPRINE HCL 10 MG TABLET PO PRN (16:20)
[2020-07-31] MEDS: GLYBURIDE 5 MG TABLET PO SCH (17:06)
[2020-08-01] MEDS: ACETAMINOPHEN 325 MG TABLET PO SCH ×2 (05:16→11:03)
[2020-08-01] MEDS: METFORMIN HCL 500 MG TABLET PO SCH ×2 (07:31→10:56)
[2020-08-01] MEDS: GLYBURIDE 5 MG TABLET PO SCH (07:31)
[2020-08-01] MEDS: HYDROCHLOROTHIAZIDE 25 MG TABLET PO SCH (09:10)
[2020-08-01] MEDS: CEPHALEXIN 500 MG CAPSULE PO SCH (09:10)
[2020-08-01] MEDS: ASPIRIN 81 MG TABLET, ENT COATED PO SCH (09:10)
[2020-08-01] MEDS: LISINOPRIL 10 MG TABLET PO SCH (09:10)
[2020-08-01] MEDS ORDERED: VENLAFAXINE HCL 37.5 MG CAP.SR.24H PO SCH (10:00)
--- NOTE | 2020-08-01 13:14 | PDOC PROGRESS REPORT ---
Subjective Progress Note for:: 08/01/20 Subjective:: In house overnight due to inability to get a home VAC. Otherwise reports good improvement in pain and no interval events. Reason For Visit: LEFT THIGH YANES-CARLIE Physical Exam Vital Signs: Temp Pulse Resp BP Pulse Ox 97.7 F 93 24 H 146/87 H 100 08/01/20 11:50 08/01/20 11:50 08/01/20 11:50 08/01/20 11:50 08/01/20 11:50 Intake & Output 07/31/20 08/01/20 08/02/20 06:59 06:59 06:59 Intake Total 0 3541 Output Total 55 Balance 0 3486 Weight 83.91 kg 91.7 kg Physical Exam: Left lower extremity -Pulses 2+ distally -Compartments soft -Sensation grossly intact to L3-4-5 S1 -Motor grossly intact to EHL TA gastroc and quad -Wound clean dry and intact, approximately 15 cc of output into the wound VAC this morning. Results Laboratory Results: 07/31/20 06:10 Assessment & Plan - Diagnosis (1) Yanes Carlie lesion Is this a current diagnosis for this admission?: Yes Plan: -Patient will need to be discharged with a wound VAC, ready for discharge pending Weightbearing as tolerated Prescription sent to the pharmacy for pain medication and antibiotics Patient will need to have dressing changes every 3 to 5 days, currently set up at [facility] See me in the office in 7 to 10 days. - Time Time Spent with patient: Less than 15 minutes
[2020-08-01 13:24] VITALS: BP 157/82
== END 2020-08-01 15:01 | disposition home health service (06) ==
LOC: OROUT 05:15 → 4N 09:26 → OROUT 09:26 → 4N 09:27
PROVIDERS: ADMIT Orthopaedic Surgery; ATTEND Orthopaedic Surgery
PROC: 0KCR0ZZ Extirpation of Matter from Left Upper Leg Muscle, Open Approach (ICD-10-PCS; principal; 2020-07-31 07:30)
DX: S70.12XD Contusion of left thigh, subsequent encounter (principal); M79.652 Pain in left thigh; V69.9XXD Occupant (driver) (passenger) of heavy transport vehicle injured in unspecified traffic accident, subsequent encounter; Z20.828 Contact with and (suspected) exposure to other viral communicable diseases
CPT/HCPCS: 36415; 87070; 87205; 82947; 84132; 87635; 87075; 97161; 97165; 00400; 27301; G0378 ×2; J2250; J0690 ×2; J3490 ×8; J3010; J7060; J2704; C9803

== ENCOUNTER → 2020-08-11 | Outpatient (CLI) | payer OTHER ==
--- NOTE | 2020-08-11 16:51 | RADIOLOGY REPORT (SQ) ---
EXAM DESCRIPTION: VENOUS UNILATERAL LOWER IMAGES COMPLETED DATE/TIME: 08/11/2020 4:14 pm REASON FOR STUDY: LT THIGH ULCER L97.122 NON-PRESSURE CHRONIC ULCER OF LEFT THIGH W FAT LAYER COMPARISON: None. TECHNIQUE: Dynamic and static simmons scale and color images acquired of the left leg venous system. Se lected spectral images acquired with additional compression and augmentation maneuvers. The contralat eral common femoral vein and saphenofemoral junction were also imaged. Images stored on PACS. LIMITATIONS: External bandaging limits visualization of the distal femoral vein. FINDINGS: COMMON FEMORAL: Normal phasicity, compression and augmentation. No visualized echogenic ma terial on simmons scale. No defects on color images. FEMORAL: Mildly limited visualization as above. No clot detected. Normal compression with phasic fl ow. Normal augmentation. POPLITEAL: Normal compression, augmentation. No visualized echogenic material on simmons scale. No defec ts on color images. CALF VESSELS: Normal compression, augmentation. No visualized echogenic material on simmons scale. No de fects on color images. GSV and SSV: Normal compression, augmentation. No visualized echogenic material on simmons scale. No def ects on color images. ANY DEEP VENOUS INSUFFICIENCY: Not evaluated. ANY EVIDENCE OF POPLITEAL CYST: No. OTHER: No other significant finding. CONTRALATERAL COMMON FEMORAL VEIN AND SAPHENOFEMORAL JUNCTION: Normal phasicity, compression and augmentation. No visualized echogenic material on simmons scale. No de fects on color images. IMPRESSION: NO EVIDENCE DVT OR SVT IN THE LEFT LEG. TECHNICAL DOCUMENTATION: JOB ID: [id number] 2010 [employer]- All Rights Reserved Reading location - IP/workstation name: [email or web address]
--- NOTE | 2020-08-12 08:25 | RADIOLOGY REPORT (SQ) ---
EXAM DESCRIPTION: U/S EXTREMITY NONVASCULAR LTD IMAGES COMPLETED DATE/TIME: 08/11/2020 3:45 pm REASON FOR STUDY: (L97.122)NON-PRESSURE CHRONIC ULCER OF LEFT THIGH W FAT LAYER EXPOSED L97.122 NON -PRESSURE CHRONIC ULCER OF LEFT THIGH W FAT LAYER COMPARISON: CT left lower extremity 05/31/2020 Ultrasound left lower extremity 07/18/2020 TECHNIQUE: Static and real time simmons scale ultrasound Doppler spectral analysis, and color Doppler a cquired along the left thigh LIMITATIONS: None. FINDINGS: Large left thigh soft tissue fluid collection seen on ultrasound 07/18/2020 has near comple tely resolved. Patient has an open wound bandage over the wound. Around the periphery of the bandage medially, ther e is a thin rim of fluid measuring about 6 mm thickness between the subcutaneous fat and superficial aspect of thigh muscles. Diffuse subcutaneous edema medially along the bandages. IMPRESSION: Significant decrease in left thigh fluid collection compared to 07/18/2020. Only minimal residual fluid persists, along the tissue planes between the muscle and subcutaneous fat medially. TECHNICAL DOCUMENTATION: JOB ID: [id number] 2010 [employer]- All Rights Reserved Reading location - IP/workstation name: [email or web address]
== END ==
LOC: RAD 14:33
PROVIDERS: ATTEND Nurse Practitioner Family
DX: L97.122 Non-pressure chronic ulcer of left thigh with fat layer exposed (principal)
CPT/HCPCS: 76882; 93971